=== PATIENT | female | born 1975 | race Caucasian/White ===

== ENCOUNTER 2017-05-30 04:21 | Emergency (ER) | payer SELFPAY ==
[~2017-05-30] VITALS: Ht 165.1 cm; Wt 67.3 kg
[2017-05-30 04:24] VITALS: BP 120/58; PULSE 92; RESP 20; TEMP 98.5; O2SAT 100
[2017-05-30] MEDS ORDERED: HYDR-2376 PO (04:27)
[2017-05-30] MEDS ORDERED: DICL75TA PO (04:36)
[2017-05-30 04:50] VITALS: O2SAT 98
[2017-05-30] MEDS ORDERED: methylphenidate PO (04:56)
[2017-05-30 05:00] LABS: AUTOMATED NEUTROPHIL # 3.4 TH/MM3 (1.8-7.7); BASOPHIL % 0.4 % (0.0-2.0); EOSINOPHIL # 0.1 TH/MM3 (0-0.4); EOSINOPHIL % 1.8 % (0.0-4.0); HEMATOCRIT 38.2 % (35.0-46.0); HEMOGLOBIN 13.1 GM/DL (11.6-15.3); LYMPH % 35.7 % (9.0-44.0); LYMPHOCYTE # 2.5 TH/MM3 (1.0-4.8); MEAN CELL VOLUME 88.9 FL (80.0-100.0); MEAN CORPUSCULAR HEMOGLOBIN 30.5 PG (27.0-34.0); MEAN CORPUSCULAR HGB CONC 34.3 % (32.0-36.0); MEAN PLATELET VOLUME 8.3 FL (7.0-11.0); MONO % 13.9 % (0.0-8.0); NEUT % 48.2 % (16.0-70.0); PLATELET COUNT 262 TH/MM3 (150-450); RED BLOOD COUNT 4.29 MIL/MM3 (4.00-5.30); RED CELL DISTRIBUTION WIDTH 12.1 % (11.6-17.2)
--- NOTE | 2017-05-30 05:10 | PD ---
HPI Chief Complaint: Pain: Acute or Chronic Time Seen by Provider: 04:23 Travel History International Travel<30 days: No Contact w/Intl Traveler<30days: No Traveled to known affect area: No History of Present Illness HPI The patient is a 42 year old female who presents to the [facility] emergency department with a history of chronic low back pain who presents with a history of left-sided buttock pain and low back pain that began yesterday between 8 and 9 PM. The patient reports that she had been walking around a lot yesterday, however she denies any specific trauma. She reports that she is visiting from [place]. She reports that over the last 3 months she has been taking hydrocodone 7.5 mg 3 times daily as needed for pain. She did not take her evening dose yesterday as she did have 3 alcoholic beverages and did not want to mix the narcotic with alcohol. She reports that she woke up with an exacerbation of the pain with radiation of pain down into the lateral left thigh which stopped at the mid aspect of the thigh, and radiation into the left lower quadrant of the abdomen. She reports having nausea without vomiting. She reports having some urinary frequency without dysuria or urinary urgency. She denies having any recent fevers or chills. She denies having any night sweats. She denies any IV drug use. She denies any unexplained weight loss. She denies any loss of bowel or bladder control. The patient reports that when she woke up with worsening pain she took an Aleve and Zofran for nausea. On review of systems otherwise, the patient denies having any recent cough or congestion, neck pain, chest pain, shortness of breath, abdominal pain, diarrhea , or neurologic symptoms. She reports moving her bowels regularly. LMP: Status post hysterectomy [facility] Past Medical History Narrative Medical The patient's past medical history is significant for mitral valve regurgitation , fibromyalgia, chronic fatigue on methylphenidate, history of chronic back pain with degenerative disc disease, history of hypothyroid disorder. Cardiovascular Problems: Yes (mitral valve reg) Fibromyalgia: Yes Tetanus Vaccination: > 5 Years Influenza Vaccination: Yes ?: Not Tubal Ligation: Yes (with ablation) Past Surgical History Narrative Surgical The patient's past surgical history is significant for endometrial ablation, bilateral tubal ligation, hysterectomy, appendectomy, fatty tumor removal, wisdom teeth extraction. Appendectomy: Yes Hysterectomy: Yes Oral Surgery: Yes (wisdom teeth) Social History Alcohol Use: Yes (occ) Tobacco Use: No Substance Use: No Allergies-Medications (Allergen,Severity, Reaction): Coded Allergies: haloperidol (Verified Allergy, Mild, twitching, 05/30/17) diazepam (Verified Allergy, Unknown, skin crawl, 05/30/17) Reported Meds & Prescriptions Reported Meds & Active Scripts Active Flexeril (Cyclobenzaprine HCl) 5 Mg Tab 5 Mg PO TID PRN Medrol Dosepak (Methylprednisolone) 4 Mg Dspk 4 Mg PO DIRECTED Per Pharmacist direction Reported [methylphenidate] 10 Mg PO DAILY Diclofenac Sodium DR (Diclofenac Sodium) 75 Mg Tabdr 75 Mg PO BID Hydrocodone-Acetaminophen 7.5-300 Mg Tab 1 Tab PO TID PRN Review of Systems Except as stated in HPI: all other systems reviewed are Neg General / Constitutional: No: Fever Eyes: No: Visual changes HENT: No: Headaches Cardiovascular: No: Chest Pain or Discomfort Respiratory: No: Shortness of Breath Gastrointestinal: Positive: Nausea, Abdominal Pain, No: Vomiting, Diarrhea, Changes in Bowel Habits, Loss of Appetite Genitourinary: No: Dysuria Musculoskeletal: Positive: Myalgias, Pain Skin: No Rash Neurologic: No: Weakness, Focal Abnormalities, Change in Mentation, Slurred Speech, Sensory Disturbance Psychiatric: No: Depression Endocrine: No: Polydipsia Hematologic/Lymphatic: No: Easy Bruising Physical Exam Narrative General: The patient is a well-developed well-nourished female in no acute distress. Head and Neck exam: Head is normocephalic atraumatic. Eyes: EOMI, pupils are equal round and reactive to light. Nose: Midline septum with pink mucous membranes Mouth: Dentition unremarkable. Moist mucus membranes. Posterior oropharynx is not erythematous. No tonsillar hypertrophy. Uvula midline. Airway patent. Neck: No palpable lymphadenopathy. No nuchal rigidity. No thyromegaly. Cardiovascular: Regular rate and rhythm without murmurs, gallops, or rubs. No pulse deficit to the extremities on simultaneous auscultation and palpation of her radial artery. Lungs: Clear to auscultation bilaterally. No wheezes, rhonchi, or rales. Abdomen: Soft, without tenderness to palpation in all 4 quadrants of the abdomen. No guarding, rebound, or rigidity. Normal bowel sounds are audible. No tenderness on palpation of McBurney's point. Negative [place] sign. Extremities: No clubbing, cyanosis, or edema. 2+ pulses in all 4 extremities. No calf tenderness on palpation. The patient reports having left buttock tenderness on palpation overlying the SI joint. There is no erythema or ecchymosis. No step- off or crepitus. The patient has full range of motion of the left hip. No joint swelling or erythema. Back: No spinous process tenderness to palpation. No step-off or crepitus. No erythema or ecchymosis. No costovertebral angle tenderness to palpation. The patient has a positive straight leg raise test on the left. Neurologic Exam: Cranial nerves 2-12 were intact on exam. Strength is 5/5 in all 4 extremities. No sensory deficits noted. Skin Exam: No rash noted. Intact skin that is warm and dry. Data Data Last Documented VS Vital Signs Date Time Temp Pulse Resp B/P (MAP) Pulse Ox O2 Delivery O2 Flow Rate FiO2 05/30/17 07:54 79 18 107/54 (71) 99 05/30/17 04:50 Room Air 05/30/17 04:24 98.5 Orders Orders Complete Blood Count With Diff (05/30/17 04:44) Comprehensive Metabolic Panel (05/30/17 04:44) Prothrombin Time / Inr (Pt) (05/30/17 04:44) Act Partial Throm Time (Ptt) (05/30/17 04:44) C-Reactive Protein (Crp) (05/30/17 04:44) Lipase (05/30/17 04:44) Urinalysis - C+S If Indicated (05/30/17 04:44) Thyroid Stimulating Hormone (05/30/17 04:44) Iv Access Insert/Monitor (05/30/17 04:44) Ecg Monitoring (05/30/17 04:44) Oximetry (05/30/17 04:44) Sodium Chlor 0.9% 1000 Ml Inj (Ns 1000 M (05/30/17 05:15) Ondansetron Inj (Zofran Inj) (05/30/17 05:15) Morphine Inj (Morphine Inj) (05/30/17 05:15) Ct Lumb Spine W/O Contrast (05/30/17 05:10) Hip, Uni(Ap&Lat) W Ap Pelvis (05/30/17 05:10) Orphenadrine Inj (Norflex Inj) (05/30/17 06:30) Ed Discharge Order (05/30/17 07:03) Methylprednisolone So Succ Inj (Solumedr (05/30/17 07:15) Labs Laboratory Tests Test 05/30/17 04:50 05/30/17 05:20 White Blood Count 7.0 TH/MM3 Red Blood Count 4.29 MIL/MM3 Hemoglobin 13.1 GM/DL Hematocrit 38.2 % Mean Corpuscular Volume 88.9 FL Mean Corpuscular Hemoglobin 30.5 PG Mean Corpuscular Hemoglobin Concent 34.3 % Red Cell Distribution Width 12.1 % Platelet Count 262 TH/MM3 Mean Platelet Volume 8.3 FL Neutrophils (%) (Auto) 48.2 % Lymphocytes (%) (Auto) 35.7 % Monocytes (%) (Auto) 13.9 % Eosinophils (%) (Auto) 1.8 % Basophils (%) (Auto) 0.4 % Neutrophils # (Auto) 3.4 TH/MM3 Lymphocytes # (Auto) 2.5 TH/MM3 Monocytes # (Auto) 1.0 TH/MM3 Eosinophils # (Auto) 0.1 TH/MM3 Basophils # (Auto) 0.0 TH/MM3 CBC Comment DIFF FINAL Differential Comment Prothrombin Time 10.0 SEC Prothromb Time International Ratio 1.0 RATIO Activated Partial Thromboplast Time 22.7 SEC Blood Urea Nitrogen 12 MG/DL Creatinine 0.87 MG/DL Random Glucose 93 MG/DL Total Protein 6.9 GM/DL Albumin 3.4 GM/DL Calcium Level 8.2 MG/DL Alkaline Phosphatase 58 U/L Aspartate Amino Transf (AST/SGOT) 20 U/L Alanine Aminotransferase (ALT/SGPT) 18 U/L Total Bilirubin 0.3 MG/DL Sodium Level 145 MEQ/L Potassium Level 4.5 MEQ/L Chloride Level 112 MEQ/L Carbon Dioxide Level 25.5 MEQ/L Anion Gap 8 MEQ/L Estimat Glomerular Filtration Rate 71 ML/MIN C-Reactive Protein LESS THAN 0.29 MG/DL Lipase 107 U/L Thyroid Stimulating Hormone 3rd Gen 4.230 uIU/ML Urine Color LIGHT-YELLOW Urine Turbidity CLEAR Urine pH 5.0 Urine Specific [place] 1.013 Urine Protein NEG mg/dL Urine Glucose (UA) NEG mg/dL Urine Ketones NEG mg/dL Urine Occult Blood NEG Urine Nitrite NEG Urine Bilirubin NEG Urine Urobilinogen LESS THAN 2.0 MG/DL Urine Leukocyte Esterase NEG Urine WBC 1 /hpf Urine Squamous Epithelial Cells 1 /hpf Microscopic Urinalysis Comment CULT NOT INDICATED MDM Medical Decision Making Medical Screen Exam Complete: Yes Emergency Medical Condition: Yes Medical Record Reviewed: Yes Interpretation(s) Last Impressions Lumbar Spine CT 05/30/17509 Signed Impressions: Service Date/Time: Tuesday, May 30, 2017 06:03 - CONCLUSION: 1. At L4-5 there is a broad-based but only right-sided disc protrusion encroaching the right lateral recess and right neural foramen. Normal alignment of the lumbar spine. No fracture. Alo Cavazos MD Hip and Pelvis X-Ray 05/30/17509 Signed Impressions: Service Date/Time: Tuesday, May 30, 2017 05:23 - CONCLUSION: Normal examination for a patient of this age. Alo Cavazos MD Differential Diagnosis Lumbar radiculopathy, versus musculoskeletal strain, versus tendinitis, versus SI joint dysfunction Narrative Course During the course of the patient's emergency department visit, the patient's history, examination, and differential diagnosis were reviewed with the patient. The patient was placed on a awake overnight monitor with oximetry and frequent blood pressure monitoring. The patient had IV access obtained and blood work sent for analysis. CT scan of the lumbar spine has been ordered. Left hip and pelvis x-ray has been ordered. The patient was initially provided normal saline IV fluids, Zofran for nausea, morphine for pain. The patient's laboratory studies were reviewed and remarkable for A white count of 7, hemoglobin 13.1, platelets 262 with 13.9 monocytes. CMP is remarkable for chloride of 112, GFR of 71, calcium 8.2, lipase within normal limits, C- reactive protein less than 0.29 decreasing likelihood of an infectious process, TSH 4.23, PT 10, PTT 22.7. Urinalysis within normal limits. Radiology studies were reviewed and remarkable for a CT scan of the lumbar spine that shows at L4-L5 there is a broad-based but only right-sided disc protrusion encroaching on the right lateral recess and right neural foramen, normal alignment of the lumbar spine otherwise, no fracture. Hip and pelvis x- ray showed no acute abnormality. The patient was reexamined and feeling improved. The patient still reported with movement some muscle spasm. The patient was given Norflex 60 mg IM. The patient was provided a copy of her CT scan findings for follow-up when she returns back home. The patient was given a dose of Solu-Medrol IV. The patient be discharged home with a Medrol Dosepak taper, Flexeril for muscle relaxation. The patient was instructed to avoid anti-inflammatories while taking this medication regimen. She was instructed that she could continue her hydrocodone as previously prescribed for breakthrough pain. The patient is resting comfortably and feels better, is alert and in no distress. The patient's results and examination findings were discussed with the patient. The repeat examination is unremarkable and benign. The history, exam, diagnostic testing, and current condition do not suggest any significant pathology to warrant further testing, continued ED treatment, admission, or surgical evaluation at this point. The vital signs have been stable. The patient does not have uncontrollable pain, intractable vomiting, or other significant symptoms. The patient's condition is stable and appropriate for discharge. The patient will pursue further outpatient evaluation with a primary care physician or other designated or consulting physician as indicated in the discharge instructions. The patient expressed understanding and was agreeable with this plan. Diagnosis Primary Impression: Low back pain Qualified Codes: M54.41 - Lumbago with sciatica, right side Additional Impression: Lumbar radiculopathy Referrals: Primary Care Physician 1 week Patient Instructions: General Instructions, Lumbar Radiculopathy (ED) Med/Other Pt SpecificInfo: Prescription(s) given Scripts Cyclobenzaprine (Flexeril) 5 Mg Tab 5 MG PO TID Y for SPASM, #12 TAB 0 Refills Prov: Leydi Sharp MD 05/30/17 Methylprednisolone Dosepak (Medrol Dosepak) 4 Mg Dspk 4 MG PO DIRECTED, #1 DSPK 0 Refills Per Pharmacist direction Prov: Leydi Sharp MD 05/30/17 Disposition: 01 DISCHARGE HOME Condition: Stable Leydi Sharp MD May 30, 2017 05:10
[2017-05-30] MEDS ORDERED: ONDANSETRON HCL 4 MG/2 ML VIAL IV ONE (05:15)
[2017-05-30] MEDS ORDERED: MORPHINE SULFATE 4 MG/ML INJ IV PUSH ONE (05:15)
[2017-05-30] MEDS ORDERED: SODIUM CHLOR 0.9% 1000 ML INJ 1,000 ML IV ONE (05:15)
[2017-05-30 05:23] LABS: ALKALINE PHOSPHATASE 58 U/L (45-117); TOTAL BILIRUBIN ADULT 0.3 MG/DL (0.2-1.0); TOTAL PROTEIN 6.9 GM/DL (6.4-8.2)
[2017-05-30 05:26] LABS: ALBUMIN 3.4 GM/DL (3.4-5.0); ALT (GPT) 18 U/L (10-53); AST (GOT) 20 U/L (15-37); BICARBONATE 25.5 MEQ/L (21.0-32.0); BLOOD UREA NITROGEN 12 MG/DL (7-18); C-REACTIVE PROTEIN LESS THAN 0.29 MG/DL (0.00-0.30); CALCIUM 8.2 MG/DL (8.5-10.1); CHLORIDE 112 MEQ/L (98-107); CREATININE 0.87 MG/DL (0.50-1.00); GLOMERULAR FILTRATION RATE 71 ML/MIN (>89); GLUCOSE,RANDOM 93 MG/DL (74-106); SODIUM (NA) 145 MEQ/L (136-145)
[2017-05-30 05:36] LABS: BILIRUBIN, URINE NEG (NEG); BLOOD, URINE NEG (NEG); GLUCOSE,URINE NEG (NEG); KETONE, URINE NEG (NEG); NITRITE,URINE NEG (NEG); SQUAMOUS EPITHELIAL CELL URINE 1 /hpf (0-5); URINE COLOR LIGHT-YELLOW (YELLW/STRAW); URINE LEUKOCYTE ESTERASE NEG (NEG)
--- NOTE | 2017-05-30 05:44 | RADRPT ---
EXAM DATE/TIME: 05/30/2017 05:23 [facility] COMPARISON: No previous studies available for comparison. INDICATIONS : Pain in hip and back, no known injury. MEDICAL HISTORY : None. SURGICAL HISTORY : None. ENCOUNTER: Initial ACUITY: 1 day PAIN SCORE: 8/10 LOCATION: Left hip FINDINGS: Examination of the left hip was performed with AP Pelvis. The primary and secondary trabecular patte rn of the femoral neck is intact. The hip joint is of normal width without significant sclerosis or bony hypertrophy. The acetabulum is grossly intact. CONCLUSION: Normal examination for a patient of this age. Alo Cavazos MD on May 30, 2017 at 5:42 Board Certified Radiologist. This report was verified electronically.
--- NOTE | 2017-05-30 06:28 | RADRPT ---
EXAM DATE/TIME: 05/30/2017 06:03 [facility] COMPARISON: No previous studies available for comparison. INDICATIONS : Back pain. RADIATION DOSE: 19.76 CTDIvol (mGy) MEDICAL HISTORY : Cardiovascular disease. SURGICAL HISTORY : Hysterectomy. Appendectomy. ENCOUNTER: Initial ACUITY: 1 day PAIN SCALE: 5/10 LOCATION: Bilateral lumbar TECHNIQUE: Volumetric scanning of the lumbar spine was performed. Multiplanar reconstructions in the sagittal, coronal and oblique axial planes were performed. Using automated exposure control and adjustment of the mA and/or kV according to patient size, radiation dose was kept as low as reasonably achievable t o obtain optimal diagnostic quality images. DICOM format image data is available electronically for review and comparison. FINDINGS: No significant abnormality at [id number]. At L3-4 there is a mild disc bulge without significant stenosis. At L4-5 there is a broad-based predominantly right sided disc protrusion with encroachment on the rig ht lateral recess and right neural foramen. At L5-S1 there is a mild broad-based disc bulge. No acute fracture or subluxation. CONCLUSION: 1. At L4-5 there is a broad-based but only right-sided disc protrusion encroaching the right lateral recess and right neural foramen. Normal alignment of the lumbar spine. No fracture. Alo Cavazos MD on May 30, 2017 at 6:22 Board Certified Radiologist. This report was verified electronically.
[2017-05-30] MEDS ORDERED: ORPHENADRINE INJ 60 MG/2 ML AMP IM ONE (06:30)
[2017-05-30] MEDS ORDERED: methylPREDNISolone SOD SUCC 125 MG/2 ML VIAL IV PUSH ONE (07:15)
[2017-05-30] MEDS ORDERED: MEDR4PAK PO (07:17)
[2017-05-30] MEDS ORDERED: CYCL5TAB PO (07:17)
[2017-05-30 07:54] VITALS: BP 107/54
[2017-06-02] MEDS ORDERED: METH1CHW3 PO (10:35)
== END 2017-05-30 07:54 | disposition home or self-care (01) ==
LOC: NEPE 04:21
DX: M51.16 Intervertebral disc disorders with radiculopathy, lumbar region (principal); R10.32 Left lower quadrant pain; M79.7 Fibromyalgia
CPT/HCPCS: 72131; 73502; 80053; 81001; 83690; 84443; 85025; 85610; 85730; 86140; 96361; 96372; 96374; 96375; 99285; J2270; J2360; J2405; J2930; J7030